=== PATIENT | male | born 1960 | race Caucasian/White ===

== ENCOUNTER 2018-04-09 19:11 | Emergency (ER) | payer OTHER ==
[~2018-04-09] VITALS: Ht 167.6 cm; Wt 61.7 kg
[~2018-04-09 19:11] MED LIST: ALEVE220 M2 PO; FLEXERIL10 MG PO; MOTRIN800 MG PO; NAPROSYN500 MG PO; TYLENOL WITH C1 EACH PO; ULTRAM50 MG PO; VALIUM2 MG PO
[2018-04-09] MEDS ORDERED: XANAX0.25 MG PO (22:39)
[2018-04-09 22:47] VITALS: BP 150/95
== END 2018-04-09 22:48 | disposition home or self-care (01) ==
LOC: EME 19:11
DX: F41.9 Anxiety disorder, unspecified (principal); F31.9 Bipolar disorder, unspecified; F12.90 Cannabis use, unspecified, uncomplicated; F17.200 Nicotine dependence, unspecified, uncomplicated
CPT/HCPCS: 90839; 99281; 99283